=== PATIENT | male | born 1990 | race Caucasian/White ===

== ENCOUNTER 2016-12-19 21:41 | Emergency (ER) | payer BC ==
[~2016-12-19] VITALS: Ht 177.8 cm; Wt 95.2 kg
[2016-12-19 23:44] VITALS: BP 119/72
== END 2016-12-19 23:44 | disposition home or self-care (01) ==
LOC: ED 21:41
DX: F41.0 Panic disorder [episodic paroxysmal anxiety] (principal); J45.909 Unspecified asthma, uncomplicated
CPT/HCPCS: 90715

== ENCOUNTER 2018-04-03 20:23 | Emergency (ER) | payer BC ==
[~2018-04-03] VITALS: Ht 177.8 cm; Wt 88.0 kg
[2018-04-03 20:31] VITALS: Ht 177.8 cm; Wt 88.0 kg
[2018-04-03 22:13] VITALS: BP 119/79
== END 2018-04-03 22:21 | disposition home or self-care (01) ==
LOC: ED 20:23
DX: S29.011A Strain of muscle and tendon of front wall of thorax, initial encounter (principal); Y93.43 Activity, gymnastics; Y92.89 Other specified places as the place of occurrence of the external cause; Y99.8 Other external cause status
CPT/HCPCS: J1885